=== PATIENT | male | born 1955 | race Caucasian/White ===

== ENCOUNTER → 2019-02-23 | Outpatient (CLI) | payer BC ==
[~2019-02-23] MED LIST: ASPIRIN EC81 M1 PO; ASPIRIN81 M2 PO; AUGMENTIN 875-1 EACH PO; COZAAR 50 MG TA50 M1 PO; FLONASE 0.05%50 MCG NASAL; GLUCOPHAGE1000 MG PO; GLUCOPHAGE500 MG PO; HYDROCODON-ACE1 EAC7 PO; IBUPROFEN 800800 M1 PO; PERCOCET 5-3251 EACH; PHENERGAN 25 MG25 M1 PO; TOPROL XL50 MG PO; ZOFRAN ODT4 MG PO
== END ==
LOC: CAT 16:45
DX: I70.0 Atherosclerosis of aorta (principal); K76.0 Fatty (change of) liver, not elsewhere classified; I87.8 Other specified disorders of veins; M47.816 Spondylosis without myelopathy or radiculopathy, lumbar region; M25.78 Osteophyte, vertebrae; Z90.49 Acquired absence of other specified parts of digestive tract

== ENCOUNTER 2019-03-16 10:19 | Emergency (ER) | payer BC ==
[~2019-03-16] VITALS: Ht 177.8 cm; Wt 116.6 kg
[~2019-03-16 10:19] MED LIST changes: -MOBIC15 MG PO; -NORFLEX100 MG PO
[2019-03-16 11:04] LABS: ABSOLUTE NEUTROPHILS 3.9 thou/uL (1.4-8.2); BASOPHILS 0.5 % (0.0-2.0); EOSINOPHILS 2.4 % (0.0-3.0); HEMATOCRIT 42.5 % (42.0-52.0); LYMPHOCYTES 25.7 % (24.0-44.0); MCH 28.2 pg (26.0-34.0); MCV 85.6 fL (80.0-100.0); MONOCYTES 10.9 % (1.0-8.0); PLATELET COUNT 159 thou/uL (150-400); POLYS 60.5 % (36.0-66.0); RBC 4.97 mil/uL (4.50-6.00); RDW 14.6 % (10.5-14.5); WBC 6.5 thou/uL (4.0-11.0)
[2019-03-16 11:14] LABS: ANION GAP 8 mmol/L (7-16); BUN 12 mg/dL (7-18); CALCIUM 9.2 mg/dL (8.5-10.1); CHLORIDE 103 mmol/L (98-107); CO2 25 mmol/L (21-32); GLUCOSE 195 mg/dL (74-106); POTASSIUM 4.1 mmol/L (3.5-5.1); SODIUM 136 mmol/L (136-145)
[2019-03-16 11:26] LABS: ALBUMIN 3.6 g/dL (3.4-5.0); DIRECT BILIRUBIN 0.2 mg/dL (<0.1-0.3); SGOT 63 U/L (15-37); SGPT 104 U/L (30-65); TOTAL BILIRUBIN 1.1 mg/dL (<0.1-1.0); TOTAL PROTEIN 7.4 g/dL (6.4-8.2); TROPONIN-I <0.06 ng/mL (<0.06)
[2019-03-16 11:49] LABS: URINE BILIRUBIN NEGATIVE (Negative); URINE BLOOD NEGATIVE (Negative); URINE CLARITY CLEAR; URINE COLOR YELLOW; URINE GLUCOSE-RANDOM* NEGATIVE (Negative); URINE KETONES NEGATIVE (Negative); URINE LEUKOCYTES-REFLEX NEGATIVE (Negative); URINE NITRITE-REFLEX NEGATIVE (Negative); URINE PROTEIN (DIPSTICK) NEGATIVE (Negative); URINE UROBILINOGEN 0.2 E.U./dl (0.2-1.0)
[2019-03-16] MEDS ORDERED: NORFLEX100 MG PO (12:22)
[2019-03-16] MEDS ORDERED: MOBIC15 MG PO (12:22)
[2019-03-16 12:32] VITALS: BP 129/79
--- NOTE | 2019-03-16 15:01 | EKG ---
[facility] [place] [address] ELECTROCARDIOGRAM REPORT Name: SNOW KELLEY [id number] ������������������ Admission: 03/16/19 ������������������ Attend Phys: Discharge: 03/16/19 ������������������ Date of : 53 Report #: [id number] ����������������������������������������������������������������� [id number] THIS REPORT FOR: //name// [facility] ED Test Date: 2019-03-16 Test Time: 10:30:04 Pat Name: SNOW KELLEY Department: Room: Gender: M Process Expert: TSTORCK : 1955 Requested By: Angélica Dyson Order Number: [id number] MD: Contreras Quevedo Measurements Intervals [place] Rate: 69 P: 69 DE: 180 QRS: 50 QRSD: 75 T: 38 QT: 389 QTc: 417 Interpretive Statements Sinus rhythm Multiple premature complexes, vent & supraven RSR' in V1 or V2, right VCD Nonspecific ST segment abnormalities Compared to ECG 09/28/2013 07:38:43 PVCs present Electronically Signed On 03-16-2019 15:01:30 CDT by Contreras Quevedo [email or web address] ��������������������������������������������� <ELECTRONICALLY SIGNED> ���������������������������������������� By: Contreras Quevedo MD ��������������������������������������������� 03/16/19 1501 29 Contreras Quevedo MD /LEISA
== END 2019-03-16 12:25 | disposition home or self-care (01) ==
LOC: ER 10:19
PROVIDERS: Physician Assistant
DX: R10.9 Unspecified abdominal pain (principal); I10 Essential (primary) hypertension; E11.9 Type 2 diabetes mellitus without complications; M19.90 Unspecified osteoarthritis, unspecified site; F17.220 Nicotine dependence, chewing tobacco, uncomplicated; Z90.49 Acquired absence of other specified parts of digestive tract; Z96.653 Presence of artificial knee joint, bilateral; Z98.890 Other specified postprocedural states; Z85.038 Personal history of other malignant neoplasm of large intestine; Z88.1 Allergy status to other antibiotic agents; Z88.8 Allergy status to other drugs, medicaments and biological substances

== ENCOUNTER → 2019-03-16 | Outpatient (CLI) | payer BC ==
[~2019-03-16] MED LIST changes: +MOBIC15 MG PO; +NORFLEX100 MG PO
== END ==
LOC: ULTRA 08:44
DX: K76.0 Fatty (change of) liver, not elsewhere classified (principal); I10 Essential (primary) hypertension; E11.9 Type 2 diabetes mellitus without complications; M19.90 Unspecified osteoarthritis, unspecified site; Z90.49 Acquired absence of other specified parts of digestive tract; Z85.038 Personal history of other malignant neoplasm of large intestine; Z88.1 Allergy status to other antibiotic agents; Z88.8 Allergy status to other drugs, medicaments and biological substances; F17.220 Nicotine dependence, chewing tobacco, uncomplicated

== ENCOUNTER 2021-04-03 21:27 | Emergency (ER) | payer OTHER ==
[~2021-04-03] VITALS: Ht 177.8 cm; Wt 108.9 kg
[~2021-04-03 21:27] MED LIST changes: -ASA81BEC; -TRULICITY0.75 MG/0.
[2021-04-03] MEDS ORDERED: TRULICITY0.75 MG/0. (21:56)
[2021-04-03] MEDS ORDERED: ASA81BEC (21:57)
[2021-04-03 23:07] VITALS: BP 138/94
== END 2021-04-03 23:11 | disposition home or self-care (01) ==
LOC: ER 21:27
DX: R51.9 Headache, unspecified (principal); H53.8 Other visual disturbances; I10 Essential (primary) hypertension; E11.9 Type 2 diabetes mellitus without complications; M19.90 Unspecified osteoarthritis, unspecified site; Z98.890 Other specified postprocedural states; Z90.49 Acquired absence of other specified parts of digestive tract; Z88.1 Allergy status to other antibiotic agents

== ENCOUNTER → 2021-04-03 | Outpatient (CLI) | payer OTHER ==
[~2021-04-03] MED LIST changes: +ASA81BEC; +MOBIC15 MG PO; +NORFLEX100 MG PO; +TRULICITY0.75 MG/0.
== END ==
LOC: CAT 09:51
PROVIDERS: ATTEND Nurse Practitioner
DX: R51.9 Headache, unspecified (principal)